=== PATIENT | female | born 1945 | race African-American/Black ===

== ENCOUNTER 2024-01-13 12:05 | Emergency (ER) | payer OTHER ==
[~2024-01-13] VITALS: Ht 180.3 cm; Wt 82.0 kg
[~2024-01-13 12:05] MED LIST: AMLO10TA80 PO; COR12 PO; LIP40 PO; LISI40TA13 PO
[2024-01-13 12:07] VITALS: O2SAT 99
[2024-01-13] MEDS: ACETAMINOPHEN 325MG TABLET PO NR (13:00)
[2024-01-13 13:11] LABS: BASOPHILS % 1.1 % (0.0-2.0); EOSINOPHILS % 2.2 % (0.0-5.0); HEMATOCRIT. 38.7 % (36.0-48.0); HEMOGLOBIN. 12.2 g/dL (12.0-16.0); LYMPHOCYTES % 24.5 % (20.0-50.0); MEAN CORPUSCULAR HEMOGLOBIN 26.9 pg (28.0-32.0); MEAN CORPUSCULAR HGB CONC 31.5 g/dL (31.0-37.0); MEAN CORPUSCULAR VOLUME 85.5 fL (81.0-99.0); MEAN PLATELET VOLUME 9.1 fl (7.4-10.4); MONOCYTES % 6.6 % (2.0-8.0); NEUTROPHILS % 65.6 % (40.0-76.0); PLATELET 186 x1000/uL (130-400); RED BLOOD CELL COUNT 4.52 mill/uL (4.2-5.4); RED CELL DISTRIBUTION WIDTH 16.5 % (11.6-14.6); WHITE BLOOD COUNT 8.4 x1000/uL (4.5-11.0)
[2024-01-13 13:26] LABS: CHLORIDE 108 mEq/L (98-107); SODIUM 141 mEq/L (136-145)
[2024-01-13 13:27] LABS: CALCIUM 9.6 mg/dL (8.7-10.4); CARBON DIOXIDE 27 mEq/L (21-32)
[2024-01-13 13:32] LABS: GLUCOSE 95 mg/dL (70-105); UREA NITROGEN BLOOD 25 mg/dL (9-23)
[2024-01-13 13:34] LABS: ALANINE AMINOTRANSFERASE 16 IU/L (10-49); ASPARTATE AMINOTRANSFERASE 18 IU/L (<34); BILIRUBIN TOTAL 0.5 mg/dL (0.1-1.0); PROTEIN TOTAL 6.5 g/dL (6.0-8.3)
[2024-01-13] MEDS: METOCLOPRAMIDE HCL 10MG/2ML VIAL IV NR (14:00)
[2024-01-13] MEDS: SODIUM CHLORIDE 0.9% 1,000 ML IV ONE (14:00)
[2024-01-13 18:43] VITALS: BP 153/85; PULSE 62; RESP 20; TEMP 98
== END 2024-01-13 18:43 | disposition home or self-care (01) ==
LOC: ER 12:05
DX: R51.9 Headache, unspecified (principal); I10 Essential (primary) hypertension; E78.00 Pure hypercholesterolemia, unspecified; Z90.710 Acquired absence of both cervix and uterus; Z90.10 Acquired absence of unspecified breast and nipple
CPT/HCPCS: 99285; 96374; 70450; 96361; 80053; 85025; 36415; 93005; J2765; C1893; 96372

== ENCOUNTER 2024-05-31 21:49 | Emergency (ER) | payer OTHER ==
[~2024-05-31] VITALS: Ht 165.1 cm; Wt 54.0 kg
[2024-05-31 21:54] VITALS: TEMP 97.9; O2SAT 99
[2024-05-31] MEDS: LIDOCAINE HCL 1% 20ML VIAL INFIL ONE (22:15)
[2024-05-31] MEDS: ACETAMINOPHEN 325MG TABLET PO ONE (22:36)
[2024-05-31] MEDS ORDERED: T3 PO (22:55)
[2024-06-01 01:20] VITALS: BP 176/107; PULSE 76; RESP 16; O2SAT 100
== END 2024-06-01 01:21 | disposition home or self-care (01) ==
LOC: ER 21:49
DX: S62.615A Displaced fracture of proximal phalanx of left ring finger, initial encounter for closed fracture (principal); I10 Essential (primary) hypertension; E78.00 Pure hypercholesterolemia, unspecified; Z90.710 Acquired absence of both cervix and uterus; Z79.899 Other long term (current) drug therapy; Y08.89XA Assault by other specified means, initial encounter; Y93.89 Activity, other specified; Y92.89 Other specified places as the place of occurrence of the external cause; Y99.8 Other external cause status
CPT/HCPCS: 99284; 73130; 26725; 70450; J3490